=== PATIENT | female | born 1940 | race Hispanic/Latino ===

== ENCOUNTER 2016-09-26 17:17 | Emergency (ER) | payer OTHER, MEDICARE ==
[~2016-09-26] VITALS: Ht 157.5 cm; Wt 59.0 kg
[~2016-09-26 17:17] MED LIST: AMITRIPTYLINE H25 MG PO; CLOPIDOGREL75 MG PO; HYDRALAZINE HCL25 MG PO; HYDRODIURIL 112.5 M1 PO; IRBESARTAN300 MG PO; METFORMIN1000 MG PO; NAPROXEN375 MG PO; NEXIUM 40MG40 MG PO; PRAVASTATIN SOD80 M1 PO; TRANS SCOPE PAT1 PAT TOP; TYLENOL #31 TAB PO; VALACYCLOVIR1 GM PO; VERAPAMIL HYDR240 MG PO; ZOFRAN4 M1 SL
[2016-09-26] MEDS ORDERED: GABAPENTIN100 M2 PO (18:27)
[2016-09-26] MEDS ORDERED: CLOPIDOGREL75 M1 PO (18:28)
[2016-09-26] MEDS ORDERED: OMEPRAZOLE40 M1 PO (18:29)
[2016-09-26] MEDS ORDERED: VENLAFAXINE HCL75 M1 (18:29)
[2016-09-26] MEDS ORDERED: HYDRALAZINE HCL25 M1 PO (18:30)
[2016-09-26] MEDS ORDERED: FERROUS SULFAT325 M3 PO (18:31)
[2016-09-26] MEDS ORDERED: FOLIC ACID1 M1 PO (18:32)
--- NOTE | 2016-09-26 18:32 | ED HEADACHE COMPLAINT ---
History of Present Illness General Chief Complaint: Nausea, Vomiting, Diarrhea Stated Complaint: NVD X 4DAYS HEADACHE Source: patient, family, old records Exam Limitations: no limitations Vital Signs & Intake/Output Vital Signs & Intake/Output Vital Signs Date Time Temp Pulse Resp B/P Pulse O2 O2 Flow FiO2 Ox Delivery Rate 09/26 2146 73 184/80 09/26 2012 Room Air 09/26 2012 71 210/78 09/26 1926 74 232/80 09/26 1924 74 232/80 09/26 1826 170/98 09/26 1738 97.5 88 20 230/88 98 Room Air Triage Note: RECEIVED 76 YO FEMALE WITH HX OF MIGRAINES, C/O HEADACHE SINCE LAST MONDAY, WITH DIZZINESS AND NAUSEA. THESE SYMPTOMS HAVE BEEN CHRONIC SINCE 2015 SINCE HAVING HER MEDS CHANGED. PT IS NOT EATING OR DRINKING NORMALLY. B/P IN TRIAGE 230/88 Triage Nurses Notes Reviewed? yes HPI: This is a 76 yo female with PMH of DM not on meds, HTN, migraine, who comes in with CC of headache and nausea. Pt states that while she has chronic headaches she noticed a headache worsening last -Monday. Headache gradually worsened until pt is unable to sleep due to 9/10 bandline pain around her head. She denies any relieving or exacerbating factors at this time; however she prefers to stay in a dark room. She states that this feels like a typical headache though somewhat worse in severity. Denies any visual or auditory auras but does endorse nausea that started two days ago. She saw a clinician last Monday and some medications were changed. She was prescribed a new medication, gabapentin and her venlafaxine was decreased from two tabs to one. She states that she is compliant with her anti-hyperensive regimen of 25 mg Hydralazine BID. Pt states that she has had hx of what sounds like endarterectomies, first one 5-7 yrs ago and second one 3 yrs ago. She denies any hx of TIA or stroke. She states her headaches were controlled with Amitryptaline but it was stopped in 2015 when she started experiencing debilitating dizziness and vertigo; since then she has been trying various cocktails of meds with no success. (AASHISH KENNEDY,RICHARD) Allergies Coded Allergies: Iodinated Contrast Media - Oral and (ANAPHYLAXIS 09/26/16) Penicillins (ITCHY, DIZZY 09/26/16) aspirin (ITCHY, AND DIZZY 09/26/16) shellfish derived (ANAPHYLAXIS 09/26/16) Reconcile Medications Clopidogrel Bisulfate (Clopidogrel) 75 MG TABLET 1 TAB PO DAILY BLOOD THINNER (Reported) Ferrous Sulfate 325 MG (65 MG IRON) TABLET 1 TAB PO DAILY SUPPLEMENT ( Reported) Folic Acid 1 MG TABLET 1 TAB PO DAILY SUPPLEMENT (Reported) Gabapentin 100 MG CAPSULE 1 CAP PO QHS MIGRAINES (Reported) Hydralazine HCl 25 MG TABLET 1 TAB PO BID BP (Reported) Methylprednisolone (Unknown Strength) TAB.DS.PK (Unknown Dose) UNKNOWN ( Reported) Omeprazole 40 MG CAPSULE.DR 1 CAP PO DAILY GI (Reported) Venlafaxine HCl (Venlafaxine HCl ER) (Unknown Strength) CAP.ER.24H (Unknown Dose) UNKNOWN (Reported) (DENISE KENNEDY,PATRICK Gonzalez) Past History Travel History Traveled to [place] past 21 day No Medical History Any Pertinent Medical History? see below for history Neurological: NONE EENT: NONE Cardiovascular: hypertension, hyperlipidemia Respiratory: NONE Gastrointestinal: GERD Hepatic: NONE Renal: NONE Musculoskeletal: NONE Psychiatric: NONE Endocrine: diabetes Blood Disorders: NONE Cancer(s): NONE History of CDIFF: No Tetanus Vaccine: 08/07/12 Surgical History Surgical History: non-contributory Psychosocial History What is your primary language Gambian Tobacco Use: Never used Family History Hx Contributory? No (AASHISH KENNEDY,RICHARD) Review of Systems Review of Systems Constitutional: Denies: chills, malaise, weakness. Eyes: Reports: photophobia. Denies: blindness, blurred vision, tunnel vision, vision change. Ears, Nose, Throat, Mouth: Denies: ear pain. Respiratory: Denies: cough, short of breath. Cardiovascular: Reports: palpitations. Denies: chest pain, syncope. Gastrointestinal/Abdominal: Reports: nausea. Denies: abdominal pain, constipation, diarrhea, vomiting. Genitourinary: Reports: no symptoms. Musculoskeletal: Reports: no symptoms. Skin: Reports: no symptoms. Neurological/Psychological: Reports: headache. Denies: cognitive dysfunction, confusion, numbness, paresthesia, tingling, tremors, tonic-clonic seizures. (RICHARD ZENDEJAS MD) Physical Exam Physical Exam General Appearance: well developed/nourished, no apparent distress, alert, awake , comfortable Head: atraumatic, normal appearance Eyes: Bilateral: normal appearance, PERRL, EOMI. Ears, Nose, Throat: normal pharynx, normal ENT inspection Neck: normal inspection, supple, full range of motion Respiratory: normal breath sounds, chest non-tender, no respiratory distress Cardiovascular: regular rate/rhythm Gastrointestinal: soft, non-tender Back: normal inspection, normal range of motion Extremities: normal inspection, no edema Cranial Nerves: normal hearing, normal speech, CN 2-12 WNL Motor/Sensory: no motor/sensory deficits Core Measures Severe Sepsis Present: No Septic Shock Present: No (AASHISH KENNEDY,RICHARD) Progress Differential Diagnosis: cluster WOODSON, migraine WOODSON, subarach. Hem., tension WOODSON, MIGRAINE Plan of Care: Current Medications Sig/Pooja Start time Last Medication Dose Stop Time Status Admin Ondansetron HCl 4 MG ONCE ONE 09/26 1844 CAN (Zofran) 09/26 1845 Giving pt her night time dose of BP meds, and IV phergan and torradol. At this time will con't monitor BP and WOODSON clincially. No need for imaging presently. (RICHARD ZENDEJAS MD) Comments: 09/26/2016 7:25:55 PM patient signed out to Dr. Swenson. Medications ordered. Plan reevaluation of both headache and blood pressure. (DENISE KENNEDY,PATRICK Gonzalez) Comments: Patient feeling much better. Her blood pressure is decreasing. Patient will follow-up with her primary care physician in the morning. (HI KENNEDY,ROBERT Santos) Departure Departure Disposition: HOME OR SELF CARE Condition: Stable Clinical Impression Primary Impression: Migraine Referrals: WOLF LOVELL MD (PCP/Family) Additional Instructions: If your condition or symptoms worsen then come back to ED. Please follow up with your neurologist and PCP within one week. Departure Forms: Customer Survey General Discharge Information (RICHARD ZENDEJAS MD) Resident Co-Sign Statement Statement: ED Attending supervision documentation- [X] I saw and evaluated the patient. I have also reviewed all the pertinent lab results and diagnostic results. I agree with the findings and the plan of care as documented in the Resident's documentation. [] I have reviewed the ED Record and agree with the Resident's documentation. [] Additions or exceptions (if any) to the Resident's note and plan are summarized below: [] (DENISE KENNEDY,PATRICK Gonzalez)
[2016-09-26] MEDS ORDERED: METHYLPREDNISOLO4 M2 (18:34)
[2016-09-26 21:47] VITALS: BP 184/80
== END 2016-09-26 21:56 ==
LOC: ERH 17:17
DX: G43.909 Migraine, unspecified, not intractable, without status migrainosus (principal)
CPT/HCPCS: 96374; 96375; J1885; J2550